=== PATIENT | male | born 1945 | race Caucasian/White ===

== ENCOUNTER → 2019-01-26 | Outpatient (CLI) | payer MEDICARE, BC ==
--- NOTE | 2019-01-26 11:53 | REP ---
CT chest without contrast: History: Pneumothorax followup. Esophagectomy, abscess. Prior pneumothorax. Left lower chest pain. History of esophageal carcinoma. No comparison CT imaging available at the time of this dictation. CT findings: Preliminary digital internal controls analyst radiograph demonstrates a surgical drain projecting on the mediastinum. There is hazy opacity in the left chest consistent with a pleural effusion. A right-sided PICC line is noted. On axial CT images, there are bilateral pleural effusions, left greater than right. The patient is status post esophagectomy and gastric pull-through. There is a mediastinal drainage catheter placed along the gastric pull-through coursing through the mediastinum behind the trachea and terminating at the thoracic inlet in the upper neck just to the left of midline. There is no evidence of mediastinal abscess. Apart from a small quantity of air in the lumen of the drain, there is no evidence of pneumomediastinum. There is no visible pneumothorax on either side. There is some compressive atelectasis in the left lower lobe of the lung. The right-sided PICC line is seen terminating in the superior vena cava. There is no evidence of mediastinal mass or adenopathy. Some vascular calcification is noted. No upper abdominal lymphadenopathy or focal liver lesion is appreciated. There is a ill-defined low density area in the superior aspect of the spleen question splenic infarct. This area measures 3.4 cm in greatest diameter. There is some extrathoracic subcutaneous emphysema along the right lateral and left lateral lower chest hill. Impression: Status post esophagectomy and gastric pull-through. There is a middle mediastinal surgical drain. There is no evidence of abscess, pneumomediastinum, pneumothorax, mass or adenopathy. There are small bilateral pleural effusions, left larger than right. There is a 3.4 cm low density area in the superior aspect of the spleen adjacent to the left hemidiaphragm. Question splenic infarct. Electronically Signed by Lai Harper MD 01/26/2019 02:27 P
== END ==
LOC: M RAD 10:11
PROVIDERS: ATTEND Nurse Practitioner Family
DX: J93.9 Pneumothorax, unspecified (principal)

== ENCOUNTER → 2019-01-27 | Outpatient (CLI) | payer MEDICARE, BC ==
--- NOTE | 2019-01-27 17:24 | REP ---
CT abdomen and pelvis without IV or oral contrast: History: Left upper quadrant pain. G-tube in the left upper quadrant. The patient gives a history of esophageal carcinoma. Comparison CT study is from January 15, 2019. CT findings: Preliminary digital activities director scouting radiograph demonstrates a surgical drain extending up to the hiatal hernia and a feeding tube in the central abdomen. Bowel gas pattern is unremarkable. A right hip arthroplasty is seen. There are small bilateral pleural effusions, left greater than right. The low density area in the superomedial spleen is again seen as described in yesterday's chest CT study. This is approximately 4 cm in greatest diameter and could conceivably be a splenic infarct. No focal hepatic lesion is appreciated. There is a surgical drain coursing into the middle mediastinum adjacent to the gastric pull-through. A feeding jejunostomy tube is seen in the central abdomen in place. The post procedure extrathoracic and extraabdominal soft tissue emphysema noted on January 15, 2019 is improved although not resolved. No adrenal lesion is seen. No pancreatic abnormality is noted. No abnormalities noted in the gallbladder. There is no evidence of hydronephrosis or mass in either kidney. No free intraperitoneal air is seen. There are a few diverticula in the sigmoid colon. There is no evidence of abdominal abscess. Impression: Feeding jejunostomy tube appears in good position. Surgical drain extends into the middle mediastinum anteriorly adjacent to the gastric pull-through. Bilateral pleural effusions which are small, left greater than right again seen unchanged. Low density area in the superomedial spleen, question infarct unchanged. Electronically Signed by Lai Harper MD 01/28/2019 08:00 A
== END ==
LOC: M RAD 15:55
PROVIDERS: ATTEND Nurse Practitioner Family
DX: R10.9 Unspecified abdominal pain (principal)

== ENCOUNTER → 2019-01-28 | Outpatient (REF) ==
[~2019-01-28] MED LIST: AMIO200T PEG; BENE1POW4 PEG; DULC10SU2 PR; ENOX120I3 SC; INSUHUMDS SC; IPRA0.00 INH; LEVO112T25 PEG; MELA3TAB24 PEG; META28.32 PEG; MOM30SS PEG; OXYC-517 PO; OXYCO5TA PEG; RAMI1CAP22 PEG; VITMTA PEG; ZOSY3INJ2 IV
[2019-01-28 08:29] LABS: HEMATOCRIT 31.6 % (42.0-52.0); HEMOGLOBIN 10.1 g/dl (13.5-17.5); MEAN CORPUSCULAR HEMOGLOBIN 29.9 pg (27.0-33.0); MEAN CORPUSCULAR VOLUME 93.5 fl (80.0-96.0); PLATELET COUNT, AUTOMATED 308 10^3/uL (150-450); RED BLOOD COUNT 3.38 10^6/uL (4.30-6.10); WHITE BLOOD COUNT 5.3 10^3/uL (4.0-10.0)
[2019-01-28 08:46] LABS: HEMOGLOBIN A1c 6.8 %
[2019-01-28 08:53] LABS: BLOOD UREA NITROGEN 19 MG/DL (7-18); CALCIUM LEVEL 8.6 MG/DL (8.8-10.2); CARBON DIOXIDE LEVEL 26 MEQ/L (21-32); CHLORIDE LEVEL 106 MEQ/L (98-107); CREATININE FOR GFR 1.18 MG/DL (0.70-1.30); GLOMERULAR FILTRATION RATE > 60.0 (>42); GLUCOSE, FASTING 135 MG/DL (70-100); POTASSIUM SERUM 4.7 MEQ/L (3.5-5.1); SODIUM LEVEL 139 MEQ/L (136-145)
== END ==
LOC: SKLAB2 07:00 → EDUNIT# 11:33
PROVIDERS: ATTEND Internal Medicine
DX: I10 Essential (primary) hypertension (principal); E03.9 Hypothyroidism, unspecified

== ENCOUNTER → 2019-02-01 | Outpatient (REF) ==
[2019-02-01 07:34] LABS: BASO % 0.8 % (0.0-1.0); EOS # 0.2 10^3/uL (0.0-0.5); EOS % 5.8 % (0.0-3.0); HEMATOCRIT 30.4 % (42.0-52.0); HEMOGLOBIN 9.8 g/dl (13.5-17.5); LYMPH # 1.5 10^3/uL (1.5-5.0); LYMPH % 36.8 % (24.0-44.0); MEAN CORPUSCULAR HGB CONC 32.2 g/dl (32.0-36.5); MONO # 0.5 10^3/uL (0.0-0.8); MONO % 12.8 % (0.0-5.0); NEUTROPHILS # 1.7 10^3/uL (1.5-8.5); NEUTROPHILS % 43.5 % (36.0-66.0); PLATELET COUNT, AUTOMATED 223 10^3/uL (150-450); RED BLOOD COUNT 3.27 10^6/uL (4.30-6.10)
[2019-02-01 08:01] LABS: ALBUMIN 2.5 GM/DL (3.2-5.2); ALT/SGPT 28 U/L (12-78); BILIRUBIN,TOTAL 0.5 MG/DL (0.2-1.0); BLOOD UREA NITROGEN 21 MG/DL (7-18); C REACTIVE PROTEIN QUANTITATIV 1.92 MG/DL (0.00-0.30); CALCIUM LEVEL 8.1 MG/DL (8.8-10.2); CARBON DIOXIDE LEVEL 25 MEQ/L (21-32); CHLORIDE LEVEL 107 MEQ/L (98-107); CREATININE FOR GFR 1.16 MG/DL (0.70-1.30); GLOMERULAR FILTRATION RATE > 60.0 (>42); GLUCOSE, FASTING 150 MG/DL (70-100); POTASSIUM SERUM 4.3 MEQ/L (3.5-5.1); SODIUM LEVEL 139 MEQ/L (136-145); TOTAL PROTEIN 6.2 GM/DL (6.4-8.2)
[2019-02-01 08:06] LABS: ERYTHROCYTE SEDIMENTATION RATE 66 mm/hr (0-20)
== END ==
LOC: SKLAB2 07:00
PROVIDERS: ATTEND Internal Medicine
DX: Z79.899 Other long term (current) drug therapy (principal)

== ENCOUNTER → 2019-02-02 | Outpatient (REF) | LOC: SKLAB2 11:32 | PROVIDERS: ATTEND Internal Medicine | DX: Z13.83 Encounter for screening for respiratory disorder NEC (principal) ==

== ENCOUNTER → 2019-02-04 | Outpatient (REF) ==
--- NOTE | 2019-02-04 08:03 | NOCOX ---
DATE OF PROCEDURE: 02/03/2019 INTERPRETATION: Nocturnal polysomnography was performed on room air. A total of 8 hours and 10 minutes of data was reviewed. Mean oxygen saturation for the study was 95.1%. Oxygen saturation evelyn is listed as 84% which is artifactual. The true evelyn is likely in the high 80s. He spent 99.2% a night with saturations in the 90th percentile. There are some regions of 1-2% fluctuations in the recording may be suggestive of sleep disordered breathing. IMPRESSION: 1. Acceptable nocturnal oxygenation on room air. 2. Regions of fluctuation in the SPO2 waveform may be suggestive sleep disordered breathing.
[2019-02-04 08:29] LABS: HEMATOCRIT 32.8 % (42.0-52.0); HEMOGLOBIN 10.4 g/dl (13.5-17.5); MEAN CORPUSCULAR HEMOGLOBIN 29.8 pg (27.0-33.0); MEAN CORPUSCULAR HGB CONC 31.7 g/dl (32.0-36.5); PLATELET COUNT, AUTOMATED 221 10^3/uL (150-450); RED BLOOD COUNT 3.49 10^6/uL (4.30-6.10); WHITE BLOOD COUNT 4.3 10^3/uL (4.0-10.0)
[2019-02-04 09:00] LABS: CALCIUM LEVEL 8.9 MG/DL (8.8-10.2); CREATININE FOR GFR 1.28 MG/DL (0.70-1.30); GLOMERULAR FILTRATION RATE 58.6 (>42); POTASSIUM SERUM 4.5 MEQ/L (3.5-5.1)
== END ==
LOC: SKLAB2 07:00
PROVIDERS: ATTEND Internal Medicine
DX: Z99.81 Dependence on supplemental oxygen (principal); Z87.09 Personal history of other diseases of the respiratory system

== ENCOUNTER 2019-02-06 09:40 | Inpatient (IN) | payer MEDICARE, BC ==
[~2019-02-06] VITALS: Ht 180.3 cm; Wt 114.0 kg
[2019-02-06] MEDS: MULTIVITAMINS/MINERALS THERAP 1 TAB PEG SCH ×3 (09:00→18:46)
[2019-02-06] MEDS ORDERED: LEVO112T25 PEG (10:24)
[2019-02-06] MEDS ORDERED: AMIO200T PEG (10:24)
[2019-02-06] MEDS ORDERED: MOM30SS PEG (10:24)
[2019-02-06] MEDS ORDERED: VITMTA PEG (10:24)
[2019-02-06] MEDS ORDERED: ENOX120I3 SC (10:24)
[2019-02-06] MEDS ORDERED: BENE1POW4 PEG (10:24)
[2019-02-06] MEDS ORDERED: ZOSY3INJ2 IV (10:24)
[2019-02-06] MEDS ORDERED: DULC10SU2 PR (10:24)
[2019-02-06] MEDS ORDERED: INSUHUMDS SC (10:24)
[2019-02-06] MEDS ORDERED: META28.32 PEG (10:24)
[2019-02-06] MEDS ORDERED: MELA3TAB24 PEG (10:24)
[2019-02-06] MEDS ORDERED: RAMI1CAP22 PEG (10:24)
[2019-02-06] MEDS ORDERED: IPRA0.00 INH (10:24)
[2019-02-06] MEDS: GASTROGRAFIN SOLUTION 30ML PO SCH ×2 (10:46→11:58)
[2019-02-06 10:47] LABS: BASO % 0.3 % (0.0-1.0); EOS % 0.3 % (0.0-3.0); HEMATOCRIT 29.8 % (42.0-52.0); HEMOGLOBIN 9.6 g/dl (13.5-17.5); LYMPH # 1.1 10^3/uL (1.5-5.0); LYMPH % 14.7 % (24.0-44.0); MEAN CORPUSCULAR HEMOGLOBIN 29.7 pg (27.0-33.0); MEAN CORPUSCULAR HGB CONC 32.2 g/dl (32.0-36.5); MEAN CORPUSCULAR VOLUME 92.3 fl (80.0-96.0); MONO # 0.8 10^3/uL (0.0-0.8); MONO % 11.2 % (0.0-5.0); NEUTROPHILS # 5.5 10^3/uL (1.5-8.5); NEUTROPHILS % 73.2 % (36.0-66.0); PLATELET COUNT, AUTOMATED 240 10^3/uL (150-450); RED BLOOD COUNT 3.23 10^6/uL (4.30-6.10); WHITE BLOOD COUNT 7.4 10^3/uL (4.0-10.0)
[2019-02-06 11:07] LABS: ALBUMIN 2.8 GM/DL (3.2-5.2); ALT/SGPT 31 U/L (12-78); BILIRUBIN,DIRECT < 0.1 MG/DL (0.0-0.2); BILIRUBIN,TOTAL 0.2 MG/DL (0.2-1.0); BLOOD UREA NITROGEN 26 MG/DL (7-18); CALCIUM LEVEL 9.1 MG/DL (8.8-10.2); CARBON DIOXIDE LEVEL 24 MEQ/L (21-32); CHLORIDE LEVEL 105 MEQ/L (98-107); CREATININE FOR GFR 1.33 MG/DL (0.70-1.30); GLOMERULAR FILTRATION RATE 56.1 (>42); GLUCOSE, FASTING 188 MG/DL (70-100); POTASSIUM SERUM 4.5 MEQ/L (3.5-5.1); SODIUM LEVEL 137 MEQ/L (136-145); TOTAL PROTEIN 7.7 GM/DL (6.4-8.2)
[2019-02-06] MEDS ORDERED: ONDANSETRON 4MG/2ML VIAL (J2405) IV ONE (12:15)
[2019-02-06] MEDS ORDERED: MORPHINE 2 MG/ML 1ML VIAL (J2270) IV PRN (12:15)
[2019-02-06] MEDS ORDERED: ISOVUE-370 76% 100ML VIAL (Q9967) As Ordered ONE (12:29)
--- NOTE | 2019-02-06 14:06 | REP ---
REASON FOR EXAM: Right lower quadrant pain. COMPARISON: The latest 01/27/2019. The left pleural effusion has decreased in size. The lung bases are otherwise unchanged. CONTRAST: 100 mL Isovue 370. There is a tube entering from the left anterior abdomen coursing middle mediastinum in the same fashion as the prior exam. There is a feeding jejunostomy tube which is also unchanged. Status post gastric pull-through status quo. The solid intra-abdominal organs and gallbladder are unchanged. There is no change in the appearance of a low density area in the spleen. The pancreas, adrenal glands and kidneys are unchanged. The abdominal and para-aortic regions are unchanged. No free intraperitoneal air has developed. The bowel loops have not changed. There is new abnormal enlargement of the right psoas muscle with mixed intramuscular density and seen in conjunction with a large degree of indio-psoas fatty infiltration and thickened areas of stranding in the right retroperitoneum. This is causing abnormal thickening of Gerota's fascia and the right lateroconal fascia. All this represents a change from the prior exam. The abnormal intramuscular thickening and enhancement extends into the right iliacus musculature also representing a change from the prior exam. There is no change in the appearance of the pelvis compared to the prior exam with the exception of the aforementioned findings which extend into the pelvis. IMPRESSION: 1. Improved pleural effusions. 2. Evidence of an acute right psoas muscle hematoma with involvement in the retroperitoneal adipose tissue with inflammation and extending to the right iliacus muscle along with additional related findings as described above. 3. There are other findings and chronic changes as described above. I would recommend clinical correlation and close followup. Concomitant infectious etiology cannot be ruled out although there is no evidence of an abscess at this time. Electronically Signed by Tino Gerardo DO 02/06/2019 02:07 P
[2019-02-06] MEDS ORDERED: GLUCAGON FOR INJ 1 MG VIAL (J1610) SC PRN ×2 (15:30→17:45)
[2019-02-06] MEDS ORDERED: DEXTROSE 50% 50 ML SYRINGE IV PRN ×2 (15:30→17:45)
[2019-02-06] MEDS ORDERED: GLUCOSE 4 GM CHEW TABLET PO PRN ×2 (15:30→17:45)
[2019-02-06] MEDS ORDERED: BISACODYL 10 MG SUPP PR PRN (15:30)
[2019-02-06] MEDS ORDERED: MOM 30ML SUSPENSION UDC PEG PRN (15:30)
[2019-02-06] MEDS ORDERED: ACETAMINOPHEN TAB 650MG DOSE (2X325MG) PEG PRN (15:45)
[2019-02-06] MEDS ORDERED: ENOXAPARIN 120 MG/0.8 ML SYR (J1650) SC ONE (16:00)
[2019-02-06] MEDS ORDERED: MORPHINE 4 MG/ML 1ML VIAL/SYRINGE (J2270) IV PRN (17:00)
[2019-02-06 17:08] VITALS: BP 107/79
[2019-02-06] MEDS ORDERED: HumaLOG INSULIN (NovoLOG) PER UNIT SC SCH ×2 (17:30→21:00)
[2019-02-06] MEDS: IPRATROPIUM 0.5MG/ALBUTEROL 2.5MG INH SOL UD 3ML (DUONEB)(J7620) INH SCH (17:48)
[2019-02-06] MEDS: HumaLOG INSULIN (NovoLOG) PER UNIT SC SCH (18:00)
--- NOTE | 2019-02-06 18:28 | HPEPDOC ---
General Date of Admission Feb 06, 2019 at 15:25 Date of Service: Feb 06, 2019 Chief Complaint The patient is a 73-year-old male admitted with a reason for visit of Chronic Atrial Fibrillation. Source: Patient, Old records Exam Limitations: No limitations Timing/Duration: 24 hours Severity: Moderate Associated Symptoms: Other History of Present Illness This is a 73-year-old male who is most remarkable recent history is that he's had resection of his esophagus due to and had no carcinoma. He then had gastric anastomosis and has a J-tube and PEG in place. He had complications associated with anastomotic leak requiring prolonged IV antibiotics. He went on a car trip to [place] to follow-up with infectious diseases and noted acute onset of leg pain. He had pain overnight and subsequently came to the emergency room today. He has not had any chest pain or shortness of breath associated with this. Patient was found to have a hematoma to his right so asked muscle. The patient does have a history of atrial fibrillation. He has been maintained on anticoagulation with Lovenox over the past 4 weeks. Home Medications Scheduled Amiodarone HCl (Amiodarone HCl) 200 Mg Tablet, 200 MG PEG DAILY, (Reported) Enoxaparin Sodium (Enoxaparin Sodium) 120 Mg/0.8 Ml Syringe, 120 MG SC Q12H, (Reported) Insulin Human Lispro (Humalog) 100 Unit/1 Ml Vial, 1 DOSE SC Q6H, (Reported) 0000, 0600, 1200, 1800 - PER SLIDING SCALE Ipratropium/Albuterol Sulfate (Iprat-Albut 0.5-3(2.5) mg/3 ml) 3 Ml Ampul.neb, 1 AYAN INH Q8H, (Reported) Levothyroxine Sodium (Levoxyl) 112 Mcg Tablet, 112 MCG PEG DAILY, (Reported) TAKES AT 1200 Multivitamins (Thera M Plus Tablet) 1 Each Tablet, 1 TAB PEG DAILY, (Reported) Piperacillin Sodium/Tazobactam (Zosyn 3.375 Gram Vial) 3.375 Gm Vial, 1 INJ IV ASDIRECTED, (Reported) RECEIVED ONE DOSE AT [facility] Psyllium Husk (with Sugar) (Metamucil Powder) 575 Gm Powder, 0.5 PKT PEG BID, (Reported) Ramipril (Ramipril) 2.5 Mg Capsule, 2.5 MG PEG DAILY, (Reported) Whey Protein Isolate (Beneprotein) 227 Gm Powder, 1 SCOOP PEG BID, (Reported) MIXED WITH 150ML OF WATER Scheduled PRN Bisacodyl (Dulcolax) 10 Mg Supp.rect, 10 MG SC DAILY PRN for CONSTIPATION, (Reported) Melatonin (Melatonin) 3 Mg Tab.rapdis, 3 MG PEG QHS PRN for INSOMNIA, (Reported) Milk Of Magnesia (Milk of Magnesia) 2,400 Mg/10 Ml Oral.susp, 10 ML PEG DAILY PRN for CONSTIPATION, (Reported) Allergies Coded Allergies: nitroglycerin (Verified Allergy, Severe, 02/06/19) "I flat-line" Past Medical History Medical History Past medical history includes Harry's esophagus, Esophageal adenocarcinoma, chronic atrial fibrillation, hypertension, hypothyroidism, history of CVA in 2013 Surgical History Surgical history includes right total hip arthroplasty, esophageal resection with gastric anastomosis Family History There is paternal history of heart disease and maternal history of colon cancer and essential hypertension. Social History * Smoker: non-smoker (the patient states she has never smoked) Alcohol: Denies Drugs: denies The patient is a retired nanny/household manager A-FIB/CHADSVASC A-FIB History Current/History of A-Fib/PAF?: Yes Current PO Anticoag Therapy: No Age/Risk Factor Scoring CHADSVASC: CHADSVASC Response (Comments) Value Age Risk Factor Age < 65 years old 0 Gender Risk Factor Male 0 Hx of CHF No 0 Hx of HTN Yes 1 Hx of Stroke/TIA/or VTE Yes 2 Hx of Diabetes No 0 Hx of Vascular Disease No 0 Total 3 Treatment Treatment ordered: Heparin IV bridge Therapy Reason Anticoagulant not given: Current bleeding Review of Systems Other systems Review of 10 systems is otherwise negative except as stated in the HPI Physical Examination General Exam: Positive: Alert, Cooperative, Mild Distress Eye Exam: Positive: PERRLA, Conjunctiva & lids normal ENT Exam: Positive: Atraumatic, Mucous membr. moist/pink, Other ENT (the patient has fairly well-healed surgical scar to the base of his throat, voice quality is hoarse) Neck Exam: Positive: Supple; Negative: JVD, thyromegaly Chest Exam: Positive: Clear to auscultation, Normal air movement Heart Exam: Positive: Rate Normal, Regular Rhythm, Normal S1, Normal S2; Negative: Murmurs, Rubs Telemetry: Positive: No significant arrhythmia Abdomen Exam: Positive: Normal bowel sounds, Soft, Other (the patient is noted to have a J-tube in place. Additionally, he has a PEG in place for drainage of his stomach.); Negative: Tenderness, Hepatospenomegaly Extremity Exam: Positive: Normal pulses, Tenderness (patient prefers to hold his right lower extremity in a flexed and externally rotated position for comfort), Other; Negative: Clubbing, Cyanosis, Edema Skin Exam: Positive: Nl turgor and temperature; Negative: Breakdown, Lesion Neuro Exam: Positive: Normal Speech, Cranial Nerves 3-12 NL Psych Exam: Positive: Mental status NL, Mood NL, Oriented x 3 Vital Signs Vital Signs Date Time Temp Pulse Resp B/P (MAP) Pulse Ox O2 Delivery O2 Flow Rate FiO2 02/06/19 17:08 97.1 89 18 107/79 (88) 95 02/06/19 13:30 Room Air Laboratory Data Labs 24H Laboratory Tests 2 02/06/19 10:21: Immature Granulocyte % (Auto) 0.3, White Blood Count 7.4, Red Blood Count 3.23L, Hemoglobin 9.6L, Hematocrit 29.8L, Mean Corpuscular Volume 92.3, Mean Corpuscul ar Hemoglobin 29.7, Mean Corpuscular Hemoglobin Concent 32.2, Red Cell Distribution Width 16.0H, Platelet Count 240, Neutrophils (%) (Auto) 73.2H, Lymphocytes (%) (Auto) 14.7L, Monocytes (%) (Auto) 11.2H, Eosinophils (%) (Auto) 0.3, Basophils (%) (Auto) 0.3, Neutrophils # (Auto) 5.5, Lymphocytes # (Auto) 1.1L, Monocytes # (Auto) 0.8, Eosinophils # (Auto) 0.0, Basophils # (Auto) 0.0, Nucleated Red Blood Cells % (auto) 0.0, Anion Gap 8, Glomerular Filtration Rate 56.1, Calcium Level 9.1, Aspartate Amino Transf (AST/SGOT) 21, Alanine Aminotransferase (ALT/SGPT) 31, Alkaline Phosphatase 126H, Total Bilirubin 0.2, Direct Bilirubin < 0.1, Total Protein 7.7, Albumin 2.8L, Albumin/Globulin Ratio 0.57L CBC/BMP Laboratory Tests 02/06/19 10:21 Red Blood Count 3.23 L, Mean Corpuscular Volume 92.3, Mean Corpuscular Hemoglobin 29.7, Mean Corpuscular Hemoglobin Concent 32.2, Red Cell Distribution Width 16.0 H, Neutrophils (%) (Auto) 73.2 H, Lymphocytes (%) (Auto) 14.7 L, Monocytes (%) (Auto) 11.2 H, Eosinophils (%) (Auto) 0.3, Basophils (%) (Auto) 0.3, Neutrophils # (Auto) 5.5, Lymphocytes # (Auto) 1.1 L, Monocytes # (Auto) 0.8, Eosinophils # (Auto) 0.0, Basophils # (Auto) 0.0 Assessment/Plan 1. Left PSOAS hematoma. This may be related to the anticoagulation he's been receiving. There is some surrounding inflammation. Conservative management will consist of pain control. We will try contacting interventional radiology when available to determine whether this is something that needs to be drained. 2. Chronic atrial fibrillation. The patient has a history of stroke in 2013. He had been on anticoagulation with Coumadin until his surgery. Postoperatively, he has been on Lovenox for the past 4 weeks. We are continuing his Lovenox for now as his risk of stroke outweighs this current bleeding episode. 3. Esophageal adenocarcinoma. This was a consequence of his Harry's esophagus. He has undergone esophageal resection with gastric anastomosis. He does not take anything by mouth at this time. Medications and tube feeds are through his PEG and J-tube respectively. 4. Central hypertension, hypothyroidism. The patient continues with his medications administered through his PEG tube. Plan / VTE VTE Prophylaxis Ordered?: Yes (patient continues to receive subcutaneous Lovenox) Plan Diet: Make NPO (he is allowed 4 ounces of fluid per day with Thick-It), Supplement (the patient receives Jevity 1.5 at 100 mL's per hour for 16 hours per day) Activity: Advance (as tolerated) Medications: Increase Pain Meds Diagnostics: Repeat Labs in AM, Other Diagnostics (possible consultation with interventional radiology) Anticipated Discharge: Home With Services Advanced Directives: Health Care Proxy (HCP) (the patient has identified his daughter as his healthcare proxy. He also states he has an advanced directive and perhaps a MOLST form scanned into the computer, but I do not see it in his record and so this will need to be clarified. In the interim he is full CODE STATUS) JOHN ALATORRE MD Feb 06, 2019 18:28
[2019-02-06] MEDS: AMIODARONE 200 MG TAB (PACERONE) PEG SCH (18:58)
[2019-02-06] MEDS: RAMIPRIL 1.25 MG CAP PEG SCH (18:58)
[2019-02-06 22:00] VITALS: BP 109/79
[2019-02-06] MEDS: METAMUCIL (PSYLLIUM) PACKET PEG SCH (22:04)
[2019-02-06] MEDS: oxyCODONE 5MG TAB PEG PRN (22:10)
[2019-02-07] VITALS (7 sets, daily range): BP systolic 102–140; BP diastolic 61–72
[2019-02-07] MEDS: HumaLOG INSULIN (NovoLOG) PER UNIT SC SCH ×4 (00:21→17:12)
[2019-02-07] MEDS: ENOXAPARIN 120 MG/0.8 ML SYR (J1650) SC SCH ×2 (05:35→17:19)
[2019-02-07 07:10] LABS: MEAN CORPUSCULAR HEMOGLOBIN 29.5 pg (27.0-33.0); MEAN CORPUSCULAR VOLUME 92.3 fl (80.0-96.0); PLATELET COUNT, AUTOMATED 201 10^3/uL (150-450); RED BLOOD COUNT 2.71 10^6/uL (4.30-6.10); WHITE BLOOD COUNT 6.4 10^3/uL (4.0-10.0)
[2019-02-07 07:30] LABS: ALBUMIN 2.6 GM/DL (3.2-5.2); ALT/SGPT 26 U/L (12-78); BILIRUBIN,TOTAL 0.2 MG/DL (0.2-1.0); BLOOD UREA NITROGEN 31 MG/DL (7-18); CALCIUM LEVEL 8.4 MG/DL (8.8-10.2); CARBON DIOXIDE LEVEL 26 MEQ/L (21-32); CHLORIDE LEVEL 102 MEQ/L (98-107); CREATININE FOR GFR 1.21 MG/DL (0.70-1.30); GLOMERULAR FILTRATION RATE > 60.0 (>42); GLUCOSE, FASTING 156 MG/DL (70-100); POTASSIUM SERUM 4.3 MEQ/L (3.5-5.1); SODIUM LEVEL 134 MEQ/L (136-145); TOTAL PROTEIN 6.7 GM/DL (6.4-8.2)
[2019-02-07] MEDS: IPRATROPIUM 0.5MG/ALBUTEROL 2.5MG INH SOL UD 3ML (DUONEB)(J7620) INH SCH ×4 (07:42→20:49)
[2019-02-07] MEDS ORDERED: FLUBLOK(EGG FREE)(QUAD)INFLUENZA VACC 0.5ML SYRINGE (90682)18YRS&OLDER IM ONE (09:00)
[2019-02-07] MEDS ORDERED: PNEUMOCOCCAL VACCINE 0.5ML SYRINGE(90732) PNEUMOVAX 23 IM ONE (09:00)
[2019-02-07] MEDS: RAMIPRIL 1.25 MG CAP PEG SCH (10:00)
[2019-02-07] MEDS: AMIODARONE 200 MG TAB (PACERONE) PEG SCH (10:01)
[2019-02-07] MEDS: MULTIVITAMINS/MINERALS THERAP 1 TAB PEG SCH (10:01)
[2019-02-07] MEDS: oxyCODONE 5MG TAB PEG PRN ×2 (10:03→17:18)
[2019-02-07] MEDS: METAMUCIL (PSYLLIUM) PACKET PEG SCH ×2 (10:03→21:15)
[2019-02-07] MEDS: LEVOTHYROXINE 112MCG TABLET (0.112MG) PEG SCH (13:17)
--- NOTE | 2019-02-07 19:08 | IPNPDOC ---
Text Note Date of Service The patient was seen on 02/07/19. NOTE SUBJECTIVE: The patient's pain is "stable" and managed with his current morphine and oxycodone. The patient has a right psoas muscle hematoma. OBJECTIVE: Please see vital signs below Physical exam: HENT: Neck is supple, oral mucosa is moist, there is no adenopathy or thyrome kristi, patient has a surgical scar to the base of his throat, voice quality is hoarse but speech is intelligible. Cardiovascular: Regular rate and rhythm with a normal S1 and S2. Respiratory: Generally clear to auscultation with occasional coarse breath sounds. Abdomen: Soft, nontender, nondistended, moderate central obesity, J-tube and PEG tube sites are intact. Extremities: Distally. Pedal pulses are palpable bilaterally, there is no bruising or dislocation to his proximal right lower extremity, although there is tenderness to the right lateral thigh ASSESSMENT/PLAN: 1. Left PSOAS hematoma. This may be related to the anticoagulation he's been receiving. There is some surrounding inflammation. Conservative management will consist of pain control. We will try contacting interventional radiology when available to determine whether this is something that needs to be drained. 2. Chronic atrial fibrillation. The patient has a history of stroke in 2013. He had been on anticoagulation with Coumadin until his surgery. Postoperatively, he has been on Lovenox for the past 4 weeks. We are continuing his Lovenox for now as his risk of stroke outweighs this current bleeding episode. 3. Esophageal adenocarcinoma. This was a consequence of his Harry's esophagus. He has undergone esophageal resection with gastric anastomosis. He does not take anything by mouth at this time. Medications and tube feeds are through his PEG and J-tube respectively. 4. Central hypertension, hypothyroidism. The patient continues with his medications administered through his PEG tube. VS,Fishbone, I+O VS, Fishbone, I+O Laboratory Tests 02/07/19 06:53 Red Blood Count 2.71 L, Mean Corpuscular Volume 92.3, Mean Corpuscular Hemoglobin 29.5, Mean Corpuscular Hemoglobin Concent 32.0, Red Cell Distribution Width 16.3 H, Calcium Level 8.4 L, Aspartate Amino Transf (AST/SGOT) 17, Alanine Aminotransferase (ALT/SGPT) 26, Alkaline Phosphatase 107, Total Bilirubin 0.2, Total Protein 6.7, Albumin 2.6 L Vital Signs Date Time Temp Pulse Resp B/P (MAP) Pulse Ox O2 Delivery O2 Flow Rate FiO2 02/07/19 18:00 98.3 107 18 112/65 (81) 94 02/07/19 06:00 2.0 02/06/19 13:30 Room Air I&O- Last 24 Hours up to 6 AM 02/07/19 06:00 Intake Total 2200 ml Output Total 395 ml Balance 1805 ml JOHN ALATORRE MD Feb 07, 2019 19:08
[2019-02-08] MEDS: oxyCODONE 5MG TAB PEG PRN ×3 (01:06→16:24)
[2019-02-08] MEDS: HumaLOG INSULIN (NovoLOG) PER UNIT SC SCH ×5 (01:07→18:36)
[2019-02-08 02:00] VITALS: BP 113/65
[2019-02-08 06:00] VITALS: BP 114/54
[2019-02-08] MEDS: ENOXAPARIN 120 MG/0.8 ML SYR (J1650) SC SCH ×2 (06:07→18:35)
[2019-02-08] MEDS: IPRATROPIUM 0.5MG/ALBUTEROL 2.5MG INH SOL UD 3ML (DUONEB)(J7620) INH SCH ×3 (07:42→20:22)
[2019-02-08] MEDS: RAMIPRIL 1.25 MG CAP PEG SCH (08:30)
[2019-02-08] MEDS: MULTIVITAMINS/MINERALS THERAP 1 TAB PEG SCH (08:31)
[2019-02-08] MEDS: METAMUCIL (PSYLLIUM) PACKET PEG SCH ×2 (08:32→21:50)
[2019-02-08] MEDS: AMIODARONE 200 MG TAB (PACERONE) PEG SCH (08:32)
[2019-02-08 08:46] LABS: HEMATOCRIT 23.8 % (42.0-52.0); HEMOGLOBIN 7.7 g/dl (13.5-17.5); MEAN CORPUSCULAR HEMOGLOBIN 30.2 pg (27.0-33.0); MEAN CORPUSCULAR HGB CONC 32.4 g/dl (32.0-36.5); MEAN CORPUSCULAR VOLUME 93.3 fl (80.0-96.0); PLATELET COUNT, AUTOMATED 191 10^3/uL (150-450); RED BLOOD COUNT 2.55 10^6/uL (4.30-6.10)
[2019-02-08 09:44] VITALS: BP 129/49
[2019-02-08] MEDS: LEVOTHYROXINE 112MCG TABLET (0.112MG) PEG SCH (12:48)
[2019-02-08 14:35] VITALS: BP 130/52
--- NOTE | 2019-02-08 18:41 | IPNPDOC ---
Text Note Date of Service The patient was seen on 02/08/19. NOTE SUBJECTIVE: Mr. Cho is reporting decreased pain to his right lower extremity. The patient developed a right psoas muscle hematoma. OBJECTIVE: Please see vital signs below Physical exam: HENT: Neck is supple, oral mucosa is moist, there is no adenopathy or thyromegaly, patient has a surgical scar to the base of his throat, voice quality is hoarse but speech is intelligible. Cardiovascular: Regular rate and rhythm with a normal S1 and S2. Respiratory: Generally clear to auscultation with occasional coarse breath sounds. Abdomen: Soft, nontender, nondistended, moderate central obesity, J-tube and PEG tube sites are intact. Extremities: Distally. Pedal pulses are palpable bilaterally, there is no bruising or discoloration to his proximal right lower extremity, although there is tenderness to the right lateral thigh ASSESSMENT/PLAN: 1.Right PSOAS hematoma. This may be related to the anticoagulation he's been receiving. There is some surrounding inflammation. Conservative management will consist of pain control. Case has been discussed with interventional radiology. This is not amenable to drainage as it is likely very large clot. It will resorb on its own. There does not appear to be any accompanying infection or abscess formation. 2. Chronic atrial fibrillation. The patient has a history of stroke in 2013. He had been on anticoagulation with Coumadin until his surgery. Postoperatively, he has been on Lovenox for the past 4 weeks. We are continuing his Lovenox for now as his risk of stroke outweighs this current bleeding episode. Hemoglobin has decreased from 8.0 to 7.7. We will continue to monitor. We will transfuse if needed. 3. Esophageal adenocarcinoma. This was a consequence of his Harry's esophagus. He has undergone esophageal resection with gastric anastomosis. He does not take anything by mouth at this time. The PEG tube is being used for mediastinal drainage. Feeds and medications are through his J-tube. 4. Essential hypertension, hypothyroidism. The patient continues with his medications administered through his J tube. The patient's is at bedside. She is a bit upset that he is not walking as much as he had been while he was at [facility]. I have explained this is because of pain from the hematoma. We will have him reevaluated by physical therapy services. I have also explained to her that the hematoma is not in danger of moving to his lungs. VS,Fishbone, I+O VS, Fishbone, I+O Laboratory Tests 02/08/19 08:17 Red Blood Count 2.55 L, Mean Corpuscular Volume 93.3, Mean Corpuscular Hemoglobin 30.2, Mean Corpuscular Hemoglobin Concent 32.4, Red Cell Distribution Width 16.1 H Vital Signs Date Time Temp Pulse Resp B/P (MAP) Pulse Ox O2 Delivery O2 Flow Rate FiO2 02/08/19 16:54 18 02/08/19 14:35 99.0 77 130/52 (78) 96 02/07/19 06:00 2.0 02/06/19 13:30 Room Air I&O- Last 24 Hours up to 6 AM 02/08/19 06:00 Intake Total 1820 ml Output Total 1455 ml Balance 365 ml JOHN ALATORRE MD Feb 08, 2019 18:41
[2019-02-08 20:53] VITALS: BP 143/59
[2019-02-09] VITALS (9 sets, daily range): BP systolic 118–148; BP diastolic 57–70
[2019-02-09] MEDS: oxyCODONE 5MG TAB PEG PRN ×4 (00:27→17:59)
[2019-02-09] MEDS: HumaLOG INSULIN (NovoLOG) PER UNIT SC SCH ×4 (00:28→18:00)
[2019-02-09 06:26] LABS: HEMATOCRIT 22.3 % (42.0-52.0); HEMOGLOBIN 7.3 g/dl (13.5-17.5); MEAN CORPUSCULAR HEMOGLOBIN 30.2 pg (27.0-33.0); MEAN CORPUSCULAR HGB CONC 32.7 g/dl (32.0-36.5); MEAN CORPUSCULAR VOLUME 92.1 fl (80.0-96.0); PLATELET COUNT, AUTOMATED 197 10^3/uL (150-450); RED BLOOD COUNT 2.42 10^6/uL (4.30-6.10); WHITE BLOOD COUNT 6.8 10^3/uL (4.0-10.0)
[2019-02-09] MEDS: ENOXAPARIN 120 MG/0.8 ML SYR (J1650) SC SCH ×2 (06:32→17:19)
[2019-02-09] MEDS: IPRATROPIUM 0.5MG/ALBUTEROL 2.5MG INH SOL UD 3ML (DUONEB)(J7620) INH SCH ×2 (07:21→14:56)
[2019-02-09] MEDS: RAMIPRIL 1.25 MG CAP PEG SCH (08:58)
[2019-02-09] MEDS: AMIODARONE 200 MG TAB (PACERONE) PEG SCH (08:58)
[2019-02-09] MEDS: MULTIVITAMINS/MINERALS THERAP 1 TAB PEG SCH (08:58)
[2019-02-09] MEDS: METAMUCIL (PSYLLIUM) PACKET PEG SCH ×2 (08:58→23:05)
[2019-02-09] MEDS ORDERED: FUROSEMIDE 20 MG/2 ML VIAL (J1940) IV ONE (11:00)
[2019-02-09] MEDS ORDERED: NS 1,000 ML IV SCH ×2 (11:00→17:00)
[2019-02-09] MEDS: LEVOTHYROXINE 112MCG TABLET (0.112MG) PEG SCH (12:10)
--- NOTE | 2019-02-09 19:24 | IPNPDOC ---
Text Note Date of Service The patient was seen on 02/09/19. NOTE SUBJECTIVE: Mr. Cho is reporting decreased pain to his right lower extremity. The patient developed a right psoas muscle hematoma. He has been ambulatory with physical therapy. He believes he can ambulate household distance with minimal assistance or with a walker. He has some concern about climbing stairs. OBJECTIVE: Please see vital signs below Physical exam: HENT: Neck is supple, oral mucosa is moist, there is no adenopathy or thyromegaly, patient has a surgical scar to the base of his throat, voice quality is hoarse but speech is intelligible. Cardiovascular: Regular rate and rhythm with a normal S1 and S2. Respiratory: Generally clear to auscultation with occasional coarse breath sounds. Abdomen: Soft, nontender, nondistended, moderate central obesity, J-tube and PEG tube sites are intact. Extremities: Distally. Pedal pulses are palpable bilaterally, there is no bruising or discoloration to his proximal right lower extremity, although there is tenderness to the right upper lateral thigh ASSESSMENT/PLAN: 1.Right PSOAS hematoma. This may be related to the anticoagulation he's been receiving. There is some surrounding inflammation. Conservative management will consist of pain control. Case has been discussed with interventional radiology. This is not amenable to drainage as it is likely very large clot. It will resorb on its own. There does not appear to be any accompanying infection or abscess formation. 2. Chronic atrial fibrillation. The patient has a history of stroke in 2013. He had been on anticoagulation with Coumadin until his surgery. Postoperatively, he has been on Lovenox for the past 4 weeks. We are continuing his Lovenox for now as his risk of stroke outweighs this current bleeding episode. Hemoglobin has decreased from 7.7 to 7.3. We will continue to monitor. We will transfuse 1 unit of packed red blood cells as his hemoglobin was 9.6 upon presentation. 3. Esophageal adenocarcinoma. This was a consequence of his Haryr's esophagus. He has undergone esophageal resection with gastric anastomosis. He does not take anything by mouth at this time. The PEG tube is being used for mediastinal drainage. Feeds and medications are through his J-tube. 4. Essential hypertension, hypothyroidism. The patient continues with his medications administered through his J tube. If his hemoglobin remains otherwise stable and he continues to do well with physical therapy. We anticipate he should be able be discharged to home to [place]. The patient has services in place for his tube feeds. He may need some additional home physical therapy. VS,Fishbone, I+O VS, Fishbone, I+O Laboratory Tests 02/09/19 06:00 Red Blood Count 2.42 L, Mean Corpuscular Volume 92.1, Mean Corpuscular He moglobin 30.2, Mean Corpuscular Hemoglobin Concent 32.7, Red Cell Distribution Width 15.8 H Vital Signs Date Time Temp Pulse Resp B/P (MAP) Pulse Ox O2 Delivery O2 Flow Rate FiO2 02/09/19 18:30 98.6 78 18 142/70 02/09/19 14:56 96 02/07/19 06:00 2.0 02/06/19 13:30 Room Air I&O- Last 24 Hours up to 6 AM 02/09/19 06:00 Intake Total 3610 ml Output Total 2025 ml Balance 1585 ml JOHN ALATORRE MD Feb 09, 2019 19:24
[2019-02-10] MEDS: HumaLOG INSULIN (NovoLOG) PER UNIT SC SCH ×4 (00:43→18:00)
[2019-02-10 02:15] VITALS: BP 126/65
[2019-02-10 05:44] VITALS: BP 130/65
[2019-02-10] MEDS: ENOXAPARIN 120 MG/0.8 ML SYR (J1650) SC SCH ×2 (06:08→18:31)
[2019-02-10] MEDS: IPRATROPIUM 0.5MG/ALBUTEROL 2.5MG INH SOL UD 3ML (DUONEB)(J7620) INH SCH ×3 (07:08→16:00)
[2019-02-10 08:12] LABS: HEMATOCRIT 24.8 % (42.0-52.0); HEMOGLOBIN 8.3 g/dl (13.5-17.5); MEAN CORPUSCULAR HEMOGLOBIN 30.6 pg (27.0-33.0); MEAN CORPUSCULAR HGB CONC 33.5 g/dl (32.0-36.5); MEAN CORPUSCULAR VOLUME 91.5 fl (80.0-96.0); PLATELET COUNT, AUTOMATED 222 10^3/uL (150-450); RED BLOOD COUNT 2.71 10^6/uL (4.30-6.10)
[2019-02-10] MEDS ORDERED: OXYCO5TA PEG (09:11)
[2019-02-10] MEDS: METAMUCIL (PSYLLIUM) PACKET PEG SCH ×2 (09:16→21:58)
[2019-02-10] MEDS: oxyCODONE 5MG TAB PEG PRN ×2 (09:16→16:34)
[2019-02-10] MEDS: RAMIPRIL 1.25 MG CAP PEG SCH (09:16)
[2019-02-10] MEDS: AMIODARONE 200 MG TAB (PACERONE) PEG SCH (09:16)
[2019-02-10] MEDS: MULTIVITAMINS/MINERALS THERAP 1 TAB PEG SCH (09:17)
[2019-02-10 10:00] VITALS: BP 114/59
[2019-02-10] MEDS: LEVOTHYROXINE 112MCG TABLET (0.112MG) PEG SCH (12:32)
[2019-02-10 14:00] VITALS: BP 127/67
[2019-02-10] MEDS ORDERED: ENOX120I3 SC (17:34)
--- NOTE | 2019-02-10 17:48 | IPNPDOC ---
Text Note Date of Service The patient was seen on 02/10/19. NOTE This is a brief note for discharge planning on Justin Cho. Patient developed a right psoas hematoma. 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 The patient has been on anticoagulation with Lovenox since his surgery. Previously he had been on Coumadin. He is on chronic anticoagulation due to chronic atrial fibrillation, and antiphospholipid syndrome. Anticoagulation is likely contributory to his developing a right psoas hematoma. Home needs include a pump for his tube feeds. He also needs his tube feed formulation. He does not require oxygen as his O2 sats have been up to 97% on room air. The patient will also benefit from having home physical therapy for mobility training. Home health nurse visits would also be helpful. VS,Chetnae, I+O VS, Chetnae, I+O Laboratory Tests 02/10/19 07:49 Vital Signs Date Time Temp Pulse Resp B/P (MAP) Pulse Ox O2 Delivery O2 Flow Rate FiO2 02/10/19 17:10 18 02/10/19 10:00 97.8 72 114/59 (77) 95 02/10/19 05:44 2.0 02/06/19 13:30 Room Air I&O- Last 24 Hours up to 6 AM 02/10/19 06:00 Intake Total 3726 ml Output Total 1950 ml Balance 1776 ml JOHN ALATORRE MD Feb 10, 2019 17:47
[2019-02-10 18:25] LABS: HEMOGLOBIN A1c 5.7 %
[2019-02-10 20:24] VITALS: BP 126/66
[2019-02-11] MEDS: HumaLOG INSULIN (NovoLOG) PER UNIT SC SCH ×3 (00:49→11:43)
[2019-02-11 05:51] VITALS: BP 128/67
[2019-02-11] MEDS: ENOXAPARIN 120 MG/0.8 ML SYR (J1650) SC SCH (06:01)
[2019-02-11] MEDS: IPRATROPIUM 0.5MG/ALBUTEROL 2.5MG INH SOL UD 3ML (DUONEB)(J7620) INH SCH ×3 (07:35→15:12)
[2019-02-11] MEDS: METAMUCIL (PSYLLIUM) PACKET PEG SCH (08:53)
[2019-02-11 08:54] VITALS: BP 128/67
[2019-02-11] MEDS: MULTIVITAMINS/MINERALS THERAP 1 TAB PEG SCH (08:54)
[2019-02-11] MEDS: oxyCODONE 5MG TAB PEG PRN (08:54)
[2019-02-11] MEDS: AMIODARONE 200 MG TAB (PACERONE) PEG SCH (08:54)
[2019-02-11] MEDS: RAMIPRIL 1.25 MG CAP PEG SCH (08:54)
[2019-02-11] MEDS: LEVOTHYROXINE 112MCG TABLET (0.112MG) PEG SCH (11:43)
[2019-02-11] MEDS ORDERED: ENOX120I3 SC (12:13)
[2019-02-11] MEDS ORDERED: OXYC-517 PO (12:13)
--- NOTE | 2019-02-18 20:58 | DS.PDOC ---
Discharge Summary General Date of Admission Feb 06, 2019 at 15:25 Date of Discharge February 11, 2019 Discharge Summary PROCEDURES PERFORMED DURING STAY: [None]. ADMITTING DIAGNOSES: 1. [Right psoas hematoma]. DISCHARGE DIAGNOSES: 1. [Right psoas hematoma, esophageal adenocarcinoma, chronic atrial fibrillation, essential hypertension, hypothyroidism]. COMPLICATIONS/CHIEF COMPLAINT: Chronic Atrial Fibrillation. HISTORY OF PRESENT ILLNESS/HOSPITAL COURSE: [73 year old male s/p esophageal resection for adenocarcinoma as a result of Barretts esophagus. The patient was on chronic anticoagulation with coumadin before his surgery. After his surgery he was on Lovenox. The patient developed acute pain to his right leg. He was found to have a right psoas hematoma. Patient was admitted to med-surg. Recommendations were for PT and pain control. Case reviewed with interventional radiology; drainage not recommended. Patient maintained on Lovenox due to afib. Pain control sufficient to where patient was ambulatory; he was then appropriate for discharge to home.]. DISCHARGE MEDICATIONS: Please see below. ALLERGIES: Please see below. PHYSICAL EXAMINATION ON DISCHARGE: HENT: Neck is supple, oral mucosa is moist, there is no adenopathy or thyromegaly, patient has a surgical scar to the base of his throat, voice quality is hoarse but speech is intelligible. Cardiovascular: Regular rate and rhythm with a normal S1 and S2. Respiratory: Generally clear to auscultation with occasional coarse breath sounds. Abdomen: Soft, nontender, nondistended, moderate central obesity, J-tube and PEG tube sites are intact. Extremities: Distally. Pedal pulses are palpable bilaterally, there is no brui sing or discoloration to his proximal right lower extremity, although there is tenderness to the right upper lateral thigh LABORATORY DATA: Please see below. IMAGING: PROGNOSIS: ACTIVITY: [As tolerated]. DIET: [Tube feeds(Jevity 1.5) with free water flushes; 4 oz thick-it po daily] DISCHARGE PLAN: [Patient was stable for discharge to home. He required significant arrangements for home care with regard to his tube feeds. He will also have home nurse visits. Patient receives his care in [place]; he has immediate follow up with Dr. Ross. He will also need do discuss any anticoagulation changes with his follow up manager.] DISPOSITION: Home Health Service. DISCHARGE INSTRUCTIONS: 1. . ITEMS TO FOLLOWUP ON ON OUTPATIENT: 1. . DISCHARGE CONDITION: [Stable]. TIME SPENT ON DISCHARGE: Greater than minutes. Discharge Medications Scheduled Amiodarone HCl (Amiodarone HCl) 200 Mg Tablet, 200 MG PEG DAILY, (Reported) Enoxaparin Sodium (Enoxaparin Sodium) 120 Mg/0.8 Ml Syringe, 120 MG SC Q12H, (Reported) Enoxaparin Sodium (Enoxaparin Sodium) 120 Mg/0.8 Ml Syringe, 120 MG SC BID Ipratropium/Albuterol Sulfate (Iprat-Albut 0.5-3(2.5) mg/3 ml) 3 Ml Ampul.neb, 1 AYAN INH Q8H, (Reported) Levothyroxine Sodium (Levoxyl) 112 Mcg Tablet, 112 MCG PEG DAILY, (Reported) TAKES AT 1200 Multivitamins (Thera M Plus Tablet) 1 Each Tablet, 1 TAB PEG DAILY, (Reported) Psyllium Husk (with Sugar) (Metamucil Powder) 575 Gm Powder, 0.5 PKT PEG BID, (Reported) Ramipril (Ramipril) 2.5 Mg Capsule, 2.5 MG PEG DAILY, (Reported) Whey Protein Isolate (Beneprotein) 227 Gm Powder, 1 SCOOP PEG BID, (Reported) MIXED WITH 150ML OF WATER Scheduled PRN Bisacodyl (Dulcolax) 10 Mg Supp.rect, 10 MG DE DAILY PRN for CONSTIPATION, (Reported) Melatonin (Melatonin) 3 Mg Tab.rapdis, 3 MG PEG QHS PRN for INSOMNIA, (Reported) Milk Of Magnesia (Milk of Magnesia) 2,400 Mg/10 Ml Oral.susp, 10 ML PEG DAILY PRN for CONSTIPATION, (Reported) Oxycodone HCl (Oxycodone HCl) 5 Mg Tablet, 5 MG PO Q4-6HP PRN for pain Allergies Coded Allergies: nitroglycerin (Verified Allergy, Severe, 02/06/19) "I flat-line" JOHN ALATORRE MD Feb 18, 2019 20:58
== END 2019-02-11 16:00 | disposition home health service (06) | DRG 813 ==
LOC: M ED 09:40 → M ED INP 15:25 → M MS5PR 16:52
PROVIDERS: ADMIT Internal Medicine; ATTEND Internal Medicine
PROC: 30233N1 Transfusion of Nonautologous Red Blood Cells into Peripheral Vein, Percutaneous Approach (ICD-10-PCS; principal; 2019-02-09)
DX: D68.32 Hemorrhagic disorder due to extrinsic circulating anticoagulants (principal); I48.20 Chronic atrial fibrillation, unspecified; T45.7X5A Adverse effect of anticoagulant antagonists, vitamin K and other coagulants, initial encounter; M79.81 Nontraumatic hematoma of soft tissue; E03.9 Hypothyroidism, unspecified; I10 Essential (primary) hypertension; Z93.1 Gastrostomy status; Z79.4 Long term (current) use of insulin; Z79.01 Long term (current) use of anticoagulants; Z79.899 Other long term (current) drug therapy; Z88.8 Allergy status to other drugs, medicaments and biological substances; Z86.73 Personal history of transient ischemic attack (TIA), and cerebral infarction without residual deficits; Z85.01 Personal history of malignant neoplasm of esophagus; Z96.641 Presence of right artificial hip joint; Z98.0 Intestinal bypass and anastomosis status; Z90.49 Acquired absence of other specified parts of digestive tract

== ENCOUNTER 2023-11-08 21:14 | Emergency (ER) | payer BC, MEDICARE ==
[~2023-11-08] VITALS: Ht 180.3 cm; Wt 85.9 kg
[~2023-11-08 21:14] MED LIST changes: -AMIO200T PEG; +AMIO200T49 PEG; -RAMI1CAP22 PEG; +RAMI2.5C42 PEG
[2023-11-08] MEDS ORDERED: ATOR40TA75 (21:34)
[2023-11-08] MEDS ORDERED: METF500T13 (21:34)
[2023-11-08] MEDS ORDERED: GABA-282 (21:34)
[2023-11-08] MEDS ORDERED: WARF4TAB52 (21:34)
[2023-11-08] MEDS ORDERED: MIDO5TA (21:34)
[2023-11-08 22:34] LABS: BASO % 0.6 % (0.0-1.0); EOS # 0.2 10^3/uL (0.0-0.5); EOS % 2.9 % (0.0-3.0); HEMATOCRIT 32.2 % (42.0-52.0); HEMOGLOBIN 10.2 g/dl (13.5-17.5); LYMPH # 1.8 10^3/uL (1.5-5.0); LYMPH % 26.6 % (24.0-44.0); MEAN CORPUSCULAR HGB CONC 31.7 g/dl (32.0-36.5); MEAN CORPUSCULAR VOLUME 94.7 fl (80.0-96.0); MONO # 0.7 10^3/uL (0.0-0.8); MONO % 9.8 % (2.0-8.0); NEUTROPHILS % 59.9 % (36.0-66.0); PLATELET COUNT, AUTOMATED 187 10^3/uL (150-450); WHITE BLOOD COUNT 6.6 10^3/uL (4.0-10.0)
[2023-11-08 22:59] LABS: ALBUMIN 3.3 G/DL (3.2-5.2); ALKALINE PHOSPHATASE 106 U/L (46-116); ALT/SGPT 16 U/L (7.0-40); AST/SGOT 15 U/L (<34); BILIRUBIN,TOTAL 0.3 MG/DL (0.3-1.2); BLOOD UREA NITROGEN 16 MG/DL (9-23); CALCIUM LEVEL 8.8 MG/DL (8.3-10.6); CARBON DIOXIDE LEVEL 27 MMOL/L (20-31); CHLORIDE LEVEL 109 MMOL/L (98-107); CREATININE FOR GFR 0.91 MG/DL (0.70-1.30); GLOMERULAR FILTRATION RATE > 60.0 (>42); GLUCOSE, FASTING 62 MG/DL (74-106); MAGNESIUM LEVEL 1.8 MG/DL (1.8-2.4); PHOSPHORUS LEVEL 2.8 MG/DL (2.4-5.1); POTASSIUM SERUM 3.8 MMOL/L (3.5-5.1); SODIUM LEVEL 142 MMOL/L (136-145); TOTAL PROTEIN 6.2 G/DL (5.7-8.2)
[2023-11-08 23:01] LABS: THYROID STIMULATING HORMONE 2.387 uIU/ML (0.55-4.78)
[2023-11-09 01:00] VITALS: BP 138/66; TEMP 98.2; O2SAT 98
== END 2023-11-09 01:16 | disposition home or self-care (01) ==
LOC: EDBD 21:14 → M ED 21:14
DX: E86.0 Dehydration (principal); R53.83 Other fatigue; R94.31 Abnormal electrocardiogram [ECG] [EKG]; E11.9 Type 2 diabetes mellitus without complications; E03.9 Hypothyroidism, unspecified; E78.5 Hyperlipidemia, unspecified; Z88.8 Allergy status to other drugs, medicaments and biological substances; Z79.84 Long term (current) use of oral hypoglycemic drugs; Z79.810 Long term (current) use of selective estrogen receptor modulators (SERMs); Z79.899 Other long term (current) drug therapy

== ENCOUNTER → 2024-04-07 | Outpatient (CLI) | payer MEDICARE ==
[~2024-04-07] MED LIST changes: +ATOR40TA75; +GABA-1172; +METF500T13; +MIDO5TA; +WARF4TAB52
== END ==
LOC: M SLEEP HO 09:03
PROVIDERS: ATTEND Family Medicine
DX: G47.62 Sleep related leg cramps (principal)